=== PATIENT | female | born 1975 | race Caucasian/White ===

== ENCOUNTER 2025-01-09 20:24 | Emergency (ER) | payer MEDICAID ==
[~2025-01-09] VITALS: Ht 170.2 cm; Wt 77.3 kg
[2025-01-09 20:51] VITALS: O2SAT 97
[2025-01-09] MEDS: HYDROcodone/acetaminophen 5mg/325mg tablet PO STA (20:55)
--- NOTE | 2025-01-09 21:28 | RADIOLOGY REPORT ---
CLINICAL INDICATION: WRIST PAIN TECHNIQUE: 4 radiographic views of the left wrist were obtained. Comparison: None FINDINGS/IMPRESSION: There is acute comminuted mildly displaced fracture of the distal radius with intra-articular extensi on dorsal angulation. There is associated adjacent soft tissue edema.
[2025-01-09 22:08] VITALS: TEMP 98.5
--- NOTE | 2025-01-09 22:24 | Physician Documentation ---
History of Present Illness ~ Chief Complaint: Arm Pain Stated Complaint: WRIST PAIN Time Seen by MD: 22:23 HPI Patient presents to the emergency room with pain to her left wrist. She was roller-skating and fell hurting her left wrist. No other injuries reported. She is neurovascularly intact Medication Reconciliation Allergies: Coded Allergies: No Known Allergies (Unverified , 01/09/25) Review of Systems ROS All review of systems negative except as per HPI Physical Exam Vital Signs: Temperature: 98.5, Source: Oral, Heart Rate: 72, Respiratory Rate: 18, BP: 110/63, Pulse Oximetry: 97, Weight: 77.270 Oxygen Flow Rate: 0 General Appearance General: Patient is awake, alert, oriented x4 in no acute distress and well appearing.~ Head: Normocephalic and atraumatic. Eyes: Conjunctival normal. EOMI. PERRL. ENT: Mucous membranes moist. Neck: Supple, trachea is midline. Chest: Clear to auscultation bilaterally without rales, rhonchi, or wheezes. There is no accessory muscle use or retractions. Cardiac: RRR without murmurs, gallops, or rubs. Extremities: Right upper extremity normal, left upper extremity with deformity to left wrist noted with good capillary refill and motor still intact. Procedures Procedures Left wrist reduction: Status post informed verbal consent patient was anesthetized with 1% lidocaine with epinephrine using 5 cc to create a hematoma block to patient's left wrist fracture. Patient had your total pain resolution of area of fracture after injection. Traction was then used to manipulate wrist into better alignment. She is neurovascularly intact status post reduction and still has sensory in her fingertips. Patient then placed in thumb spica splint. She is neurovascularly intact status post splint placement Patient tolerated procedure well without complication. Total time of procedure 10 minutes Progress Results/Orders Results/Orders Orders - BRAYDON GARCIA MD Wrist, Complete (3vw Min) (01/09/25 20:40) Ortho Orders (01/09/25 22:30) Wrist,Limited (Ap/Lat) (01/10/25 00:00) Completed Orders - BRAYDON GARCIA MD, Complete (3vw Min) (01/09/25 20:40) Hydrocodone/Apap 5/325mg Tab ([place] 5/32 (01/09/25 20:40) Ketorolac Trometh 15mg/Ml Vial (Toradol (01/09/25 22:30) Lidocaine 1% W/Epi 1:200,000 (Xylocaine (01/09/25 22:30) Medications Received in ER Medications (Trade) Dose Ordered Sig/Olegario Route PRN Reason Start Time Stop Time Status Last Admin Dose Admin ([place] 5/325mg tablet) 1 tab ONCE STAT PO 01/09/25 20:40 01/09/25 20:42 DC 01/09/25 20:55 1 TAB (Toradol injection) 30 mg ONCE ONCE IM 01/09/25 22:30 01/09/25 22:32 DC 01/09/25 22:45 30 MG Vital Signs 01/09/25 01/09/25 01/09/25 01/09/25 20:33 20:51 20:55 22:08 Temp 98.5 98.5 98.5 Pulse 75 70 72 Resp 18 17 17 18 B/P (MAP) 131/103 105/72 (83) 110/63 (79) Pulse Ox 100 97 O2 Flow Rate 0 0 0 01/09/25 01/09/25 01/09/25 01/09/25 22:16 22:45 22:57 23:33 Resp 18 15 16 14 B/P (MAP) 01/09/25 23:34 Pulse 71 Resp 15 B/P (MAP) 99/63 (75) Medical Decision Making Findings Patient presented to the emergency room with left wrist pain. Differentials include but are not limited to fractures, dislocation, vascular compromise, neurologic injury. X-ray shows fracture. She is neurovascularly intact on physical exam. Hematoma block performed by anesthesia to perform reduction. The patient placed in splint with improved alignment and good capillary refill status post splint placement. Analgesics discussed as well as ER precautions regarding compartment syndrome etc.. The need to follow up with orthopedist also discussed Departure Disposition: 01 HOME / SELF CARE / HOMELESS Impression: Primary Impression: Fracture of wrist Condition: Stable Discharge Instructions: Extremity Fracture Additional Instructions: Call orthopedist clinic in the morning. Return for uncontrolled pain Referrals: NO PRIMARY CARE PROVIDER (PCP) RUBA HARVEY MD Prescriptions Hydrocodone Bit/Acetaminophen 5/325 MG ([place] 5/325 MG) 5 Mg/325 Mg Tablet 1-2 TAB PO Q4-6 hours PRN for pain, #15 TAB Prov: BRAYDON GARCIA MD 01/10/25 Education Educated: Patient, Family Educated regarding: diagnosis, treatment, need for follow up Signature Scribe Signature: No scribe Attestation: The note accurately reflects work and decisions made by me.Braydon Garcia MD 01/10/25 00:16 BRAYDON GARCIA MD Jan 09, 2025 22:24
[2025-01-09] MEDS: LIDOcaine 1% W/epiNEPHrine 1:200,000 10ml vial IJ ONE (22:30)
[2025-01-09] MEDS: ketorolac trometh 15mg/ml vial 15 MG/ML ML IM ONE (22:45)
[2025-01-09 23:34] VITALS: BP 99/63; PULSE 71
[2025-01-10] MEDS ORDERED: HYDR-3965 PO (00:16)
[2025-01-10 00:48] VITALS: RESP 15
[2025-01-10] MEDS: HYDROcodone/acetaminophen 5mg/325mg tablet PO ONE (00:48)
--- NOTE | 2025-01-10 01:00 | RADIOLOGY REPORT ---
CLINICAL INDICATION: s/p reduction TECHNIQUE: DI WRIST,LIMITED (AP/LAT) Comparison: None FINDINGS/IMPRESSION: : Cast material partially obscures detail. Superiorly displaced comminuted distal radial fracture with intra-articular extension. Probable distal ulnar fracture.
== END 2025-01-10 00:50 | disposition home or self-care (01) ==
LOC: ER 20:25
DX: S52.502A Unspecified fracture of the lower end of left radius, initial encounter for closed fracture (principal); V00.121A Fall from non-in-line roller-skates, initial encounter; Y93.51 Activity, roller skating (inline) and skateboarding; Y92.89 Other specified places as the place of occurrence of the external cause; Y99.8 Other external cause status
CPT/HCPCS: 25605; 73100; 73110; 96372; 99284; J1885; A4565; A6449

== ENCOUNTER 2025-01-29 07:08 | Day surgery (SDC) | payer MEDICAID ==
[2025-01-25 11:12] LABS: BASOPHILS % (AUTO) 0.9 % (0-1); EOSINOPHILS # (AUTO) 0.1 X10'3 (0-0.9); EOSINOPHILS % (AUTO) 1.8 % (0-6); LYMPHOCYTES # (AUTO) 1.1 X10'3 (1.1-4.8); LYMPHOCYTES % (AUTO) 32.5 % (21-51); MEAN CORPUSCULAR HGB CONC 33.3 g/dL (33.0-36.5); MEAN CORPUSCULAR VOLUME 90.1 FL (78-98); MEAN PLATELET VOLUME 7.3 FL (7.4-10.4); MONOCYTES # (AUTO) 0.4 X10'3 (0-0.9); MONOCYTES % (AUTO) 10.9 % (2-12); NEUTROPHILS # (AUTO) 1.9 X10'3 (1.8-7.7); NEUTROPHILS % (AUTO) 53.9 % (42-75); PRE OP HEMATOCRIT 40.3 % (35.0-45.0); PRE OP HEMOGLOBIN 13.4 g/dL (12.0-16.0); PRE OP PLATELET COUNT 269 X10'3 (140-440); PRE OP WHITE BLOOD COUNT 3.5 10'3 (4.8-10.8); RED BLOOD COUNT 4.48 X10'6 (4.20-5.60); RED CELL DISTRIBUTION WIDTH 13.8 % (11.5-14.5)
[2025-01-25 11:28] LABS: ALBUMIN 4.1 G/DL (3.4-5.0); ALBUMIN/GLOBULIN RATIO 1.1 (1.1-1.5); ALKALINE PHOSPHATASE 60 IU/L (46-116); BLOOD UREA NITROGEN 16 MG/DL (7-18); BUN/CREATININE RATIO 23.5 (10.0-20.0); CALCIUM 9.5 MG/DL (8.5-10.1); CHLORIDE 104 MMOL/L (99-107); CREATININE 0.68 MG/DL (0.40-0.90); PRE OP ALT 26 U/L (30-65); PRE OP ANION GAP 10 (8-16); PRE OP AST 15 U/L (10-37); PRE OP BILIRUB, TOTAL 0.4 MG/DL (0.0-1.0); PRE OP GLUCOSE 90 MG/DL (70-104); PRE OP POTASSIUM 4.1 MMOL/L (3.4-5.1); PRE OP SODIUM 140 MMOL/L (135-145); TOTAL CARBON DIOXIDE 25.9 MMOL/L (24-32); TOTAL PROTEIN 7.8 G/DL (6.4-8.2); eGFR > 90 ML/MIN
[2025-01-25 12:18] LABS: HCG SERUM QL NEGATIVE
[~2025-01-29] VITALS: Ht 170.2 cm; Wt 70.0 kg
[2025-01-29] VITALS (11 sets, daily range): BP systolic 91–118; BP diastolic 59–82; PULSE 56–70; RESP 10–16; TEMP 98; O2SAT 95–100
[~2025-01-29 07:08] MED LIST: FISH OIL PO; HYDR-3965 PO; IBUP-1986 PO; MAGN400C PO; MULT-1085 PO; TURMERIC PO
[2025-01-29] MEDS ORDERED: CEFAZOLIN 2 GM injection IM ONE (08:30)
[2025-01-29] MEDS ORDERED: ceFAZolin/dextrose 1 GM/50ml ADD-VANTAGE bag IV ONE (08:35)
[2025-01-29] MEDS: famotidine 20mg tablet PO ONE (08:39)
[2025-01-29] MEDS: ringers solution, lacted 1,000 ML IV SCH (08:40)
[2025-01-29] MEDS: ceFAZolin 2gm/dext,iso 50mL 50 ML IV ONE (08:40)
[2025-01-29] MEDS ORDERED: meperidine/PF 25mg/ml syringe IV PRN (09:00)
[2025-01-29] MEDS ORDERED: HYDROmorphone/PF 0.2 MG/ML SYRINGE IV PRN ×2 (09:00)
[2025-01-29] MEDS ORDERED: proCHLORperazine 10 MG/2 ml inj IV PRN (09:00)
[2025-01-29] MEDS ORDERED: ringers solution, lacted 1,000 ML IV SCH (09:00)
[2025-01-29] MEDS ORDERED: ondansetron/PF 4mg/2ml inj IV PRN (09:00)
[2025-01-29] MEDS ORDERED: morphine 4 MG/ML inj SYRINge IV PRN (09:00)
[2025-01-29] MEDS ORDERED: acetaminophen 1,000mg/100ml IV 100 ML IV PRN (09:00)
[2025-01-29] MEDS ORDERED: labetalol 20mg/4ml (5mg/ml) syringe IV PRN (09:00)
[2025-01-29] MEDS ORDERED: hydrALAZINE 20mg/ml inj. IV PRN (09:00)
[2025-01-29] MEDS ORDERED: morphine 2 MG/ML inj. syringe IV PRN (09:00)
[2025-01-29] MEDS ORDERED: cloNIDine hcl/PF 100mcg/ml inj ONE (10:03)
[2025-01-29] MEDS ORDERED: BUPIVAcaine/PF 2.5mg/ml (0.25%) 10ml vial ONE (10:04)
[2025-01-29] MEDS ORDERED: midazolam 1 mg/ML 2ml injection ONE (10:08)
[2025-01-29] MEDS ORDERED: fentaNYL /PF 50mcg/ml 5ml ampule ONE (10:09)
[2025-01-29] MEDS ORDERED: sevoflurane 250ml liquid IH ONE (10:42)
[2025-01-29] MEDS ORDERED: dexamethasone sod phosphate 4mg/ml inj. ONE (10:48)
[2025-01-29] MEDS ORDERED: ondansetron/PF 4mg/2ml inj ONE (10:48)
[2025-01-29] MEDS ORDERED: ROPIVAcaine 0.5% (5mg/ml) 30ml vial ONE (10:48)
[2025-01-29] MEDS ORDERED: propofol inj 20 ML IV ONE (10:48)
[2025-01-29] MEDS ORDERED: LIDOcaine 2% (20mg/ml) 5ml vial ONE (10:49)
--- NOTE | 2025-01-29 13:21 | ELECTROCARDIOGRAPH REPORT ---
[facility] Test Date: 2025-01-29 Test Time: 08:12:53 Pat Name: CHASITY OLIVA Department: SHORT STAY 1ST FLOOR Room: Gender: F Office Support Specialist: AILYN : 1975 Requested By: MYRON HARMON Order Number: [id number] Reading MD: Dr. Patrick Barney Measurements Intervals [place] Rate: 64 P: 51 GA: 160 QRS: -16 QRSD: 98 T: 46 QT: 417 QTc: 431 Interpretive Statements Sinus arrhythmia Borderline low voltage, extremity leads FIRMWARE DEVELOPER anteroseptal infarct, old Electronically Signed On 01-30-2025 6:53:[address] Patrick Barney Please click the below link to view image of tracing.
--- NOTE | 2025-01-29 14:29 | OPERATIVE REPORT ---
Operative Report Providers to ~ Date of Procedure: Jan 29, 2025 Pre-Operative Diagnosis: Left wrist distal radius fracture, closed, intra- articular Post-Operative Diagnosis SAME as PRE-Op Procedure Performed Open reduction internal fixation of the left wrist distal radius fracture 3+ articular fragments Surgeon: oDmingo Skinner MD Bulk Fluids Handler None Anesthesiologist: Wendi Cross Type of Anesthesia: General Findings: Comminuted intra-articular fracture 3-week-old severely displaced Prosthetics\Implants used: SALGINA distal radius locking plate and seven screws Estimated Blood Loss: None Specimen Removed: None Description of Procedure: The patient is a 49-year-old woman who on January 09 suffered a distal radius fracture. She was seen in the emergency room and splinted. She then presented late to the office where severely displaced and comminuted distal radius fracture was identified. Surgery is indicated to preserve function and prevent deformity. Risks and benefits were discussed with the patient. Some of the risks of this type of procedure include but are not limited to infection, bleeding, nerve or vessel damage, stiffness, hardware pain and tendon rupture. She agreed to proceed. She was given a block in the operating room followed by general anesthetic. The arm was prepped and draped in usual manner with a tourniquet high in the arm. An incision was made over the flexor carpi radialis with the interval between it and the radial artery. The pronator quadratus was elevated off the distal radius and fluoro was brought in. The fracture was unable to be reduced manually so a osteotome was used to help as a lever. It was placed in the fracture site and under fluoro was used to slowly correct the dorsal and radial deformity. This was done slowly to stretch the soft tissues dorsally. There was some beginnings of healing and this area was removed. Finally is adequate taoist of the angles was achieved with the plate was affixed proximally on the forearm. The fracture was then reduced to the plate and held temporarily with a K-wire. Four distal interlocking screws were placed in the subcortical bone in order to stabilize the fracture including the radial styloid fragment. Adequate taoist of dorsal tilt and radial angulation and the articular surface was achieved. At this point the incision was irrigated and closed in layers. A sterile dressing was then applied along with a splint. The tourniquet was released the hand perfused well. The patient was awakened and taken to the recovery room in stable condition. DOMINGO SKINNER Jr., MD Jan 29, 2025 14:29
== END 2025-01-29 13:39 | disposition home or self-care (01) ==
LOC: PAS 07:08
PROVIDERS: ATTEND Orthopaedic Surgery Hand Surgery
DX: S52.572A Other intraarticular fracture of lower end of left radius, initial encounter for closed fracture (principal); X58.XXXA Exposure to other specified factors, initial encounter; Y93.51 Activity, roller skating (inline) and skateboarding; Y92.89 Other specified places as the place of occurrence of the external cause; Y99.8 Other external cause status; G89.18 Other acute postprocedural pain; Z79.899 Other long term (current) drug therapy
CPT/HCPCS: 25609; 36415; 64417; 80053; 82948; 84703; 85025; 93005; C1713; J0735; J1100; J2003; J2250; J2405; J2704; J2795; J3010; J3490; J7030; J7120; Z7506; Z7508; Z7512; A4215; A4565; A4618; A6449; A7000

== ENCOUNTER 2025-03-14 08:53 | Outpatient (CLI) | payer MEDICAID ==
[~2025-03-14 08:53] MED LIST changes: -HYDR-3965 PO
--- NOTE | 2025-03-14 12:16 | RADIOLOGY REPORT ---
CLINICAL INDICATION: PAIN IN LEFT KNEE TECHNIQUE: Multiplanar, multisequence MRI of the left knee was performed without contrast. Contrast: None. COMPARISON: None FINDINGS: Joint space and synovium: There is moderate knee joint effusion. No Rocha's cyst. No synovitis. Bones and articular cartilage: There is no evidence of acute fracture. Bone marrow edema in the late ral tibial plateau. The alignment is normal. The articular cartilage is preserved in the lateral compartment. There is diffuse chondral thinning on both sides of the medial compartment. There is ch ondral thinning in the medial patellar facet. Menisci: There is a complex tear of the posterior horn and body of the medial meniscus with horizonta l component. Horizontal tear in the posterior horn of the lateral meniscus. Tendons and ligaments: The tendons in the posterior knee are intact. The extensor mechanism is inta ct. The anterior cruciate ligament is intact. The posterior cruciate ligament is intact. The m edial collateral ligament and the lateral collateral ligament stabilizing complex are intact. Iliotib ial band is intact. Muscles: Regional muscles are preserved in bulk and signal characteristics. Other: Varicose veins throughout the subcutaneous tissues. IMPRESSION: 1. Complex tear of the posterior horn and body of the medial meniscus. 2. Horizontal tear of the lateral meniscus. 3. Mild bone marrow edema of the lateral tibial plateau may be related to meniscus injury.
== END 2025-03-14 23:59 | disposition home or self-care (01) ==
LOC: MRI 08:53
PROVIDERS: ATTEND Pediatrics Sports Medicine
DX: S83.232A Complex tear of medial meniscus, current injury, left knee, initial encounter (principal); S83.282A Other tear of lateral meniscus, current injury, left knee, initial encounter; M25.462 Effusion, left knee; M25.562 Pain in left knee; M94.262 Chondromalacia, left knee; I83.92 Asymptomatic varicose veins of left lower extremity; X58.XXXA Exposure to other specified factors, initial encounter; Y93.89 Activity, other specified; Y92.89 Other specified places as the place of occurrence of the external cause; Y99.8 Other external cause status
CPT/HCPCS: 73721